=== PATIENT | female | born 1960 ===

== ENCOUNTER 2024-02-29 08:13 | Outpatient (CLI) | payer BC ==
--- NOTE | 2024-02-29 17:13 | Ultrasound Report ---
PROCEDURE: Pelvic w/Transvaginal INDICATIONS: POST MENOPAUSAL BLEEDING TECHNIQUE: Real-time scanning was performed of the pelvic organs, with image documentation. Additional endovagi nal scanning was necessary due to incomplete visualization of the adnexal and endometrial structures by transabdominal scanning. COMPARISON: None. FINDINGS: Uterus: Uterus is anteverted and normal in size at 8.3 x 7.1 x 5.9 cm. The myometrium is heterogene ous. The endometrium measures 17 mm in combined thickness. Small endometrial cyst cysts, a larger cy st measuring 0.7 cm. Several uterine fibroids. For example: -Mid anterior submucosal fibroid measuring 1.7 x 1.4 x 1.3 cm. -Right anterior subserosal fibroid measuring 1.1 x 1.1 x 0.7 cm. -Right anterior intramural fibroid measuring 1.1 x 0.8 x 0.6 cm. Ovaries: Ovaries are not identified. No obvious adnexal mass or cyst. Other: No pathologic free abdominal or pelvic fluid. IMPRESSION: 1. Endometrial thickening in this postmenopausal patient with bleeding. Endometrium measures 17 mm. R ecommend endometrial biopsy if not yet performed. 2. Several small uterine fibroids. 3. Ovaries are not seen. Reviewed by: Garry Chavez MD on 02/29/2024 5:12 PM PDT Approved by: Garry Chavez MD on 02/29/2024 5:12 PM PDT Station ID: [id number]
== END 2024-02-29 08:14 | disposition home or self-care (01) ==
LOC: DI 08:13
PROVIDERS: ATTEND Family Medicine
DX: N95.0 Postmenopausal bleeding (principal); R93.89 Abnormal findings on diagnostic imaging of other specified body structures; D25.2 Subserosal leiomyoma of uterus; D25.0 Submucous leiomyoma of uterus; D25.1 Intramural leiomyoma of uterus

== ENCOUNTER 2024-03-04 08:00 | Outpatient (CLI) | payer BC ==
[2024-03-04 11:52] LABS: HCT - HEMATOCRIT 42.3 % (37.0-47.0); HGB - HEMOGLOBIN 14.3 g/dL (12.0-16.0); MEAN CORPUSCULAR HEMOGLOBIN 29.7 pg (27.0-31.0); MEAN CORPUSCULAR HGB CONC 33.8 g/dL (32.0-36.0); MEAN CORPUSCULAR VOLUME 87.8 fL (81.0-99.0); MEAN PLATELET VOLUME 12.4 fL (7.9-10.8); RED BLOOD COUNT 4.82 10^6/uL (4.20-5.40); RED CELL DISTRIBUTION WIDTH 12.8 % (12.0-15.0); WHITE BLOOD COUNT 6.1 x10^3/uL (4.8-10.8)
[2024-03-04 12:14] LABS: ESTIMATED AVERAGE GLUCOSE 111 mg/dL (70-100); HEMOGLOBIN A1c% 5.5 % (4.27-6.07)
[2024-03-04 12:32] LABS: ALBUMIN 4.4 g/dL (3.2-5.5); ALBUMIN/GLOBULIN RATIO 1.4 (1.0-2.2); ALKALINE PHOSPHATASE 116 IU/L (42-121); ALT ALANINE AMINOTRANSFERASE 31 IU/L (10-60); AST ASPARTATE AMINOTRANSFERASE 26 IU/L (10-42); BILIRUBIN,TOTAL 1.2 mg/dL (0.2-1.0); BUN - BLOOD UREA NITROGEN 10 mg/dL (6-20); CALCIUM 10.7 mg/dL (8.5-10.3); CARBON DIOXIDE - CO2 30 mmol/L (21-32); CHLORIDE 103 mmol/L (101-111); CHOL/HDL RATIO 4.6 (<4.4); CHOLESTEROL 199 mg/dL; CREATININE 0.6 mg/dL (0.6-1.3); GFR - MDRD 101 (>89); GLUCOSE 115 mg/dL (74-104); HDL CHOLESTEROL 43 mg/dL; LDL CHOLESTEROL,CALCULATED 114 mg/dL; LDL/HDL RATIO 2.7 (<4.4); POTASSIUM 3.9 mmol/L (3.5-4.5); SODIUM 137 mmol/L (135-145); THYROID STIMULATING HORMONE 1.24 uIU/mL (0.34-5.60); TOTAL PROTEIN 7.6 g/dL (6.4-8.9); TRIGLYCERIDES 211 mg/dL; VLDL CHOLESTEROL 42 mg/dL
[2024-03-04 12:38] LABS: FERRITIN 81.6 ng/mL (11.0-306.8)
== END 2024-03-04 23:59 | disposition home or self-care (01) ==
LOC: LAB.N 08:00
PROVIDERS: ATTEND Family Medicine
DX: R42 Dizziness and giddiness (principal); N95.0 Postmenopausal bleeding; E66.9 Obesity, unspecified
CPT/HCPCS: 36415; 80053; 80061; 82728; 83036; 83721; 84443; 85027

== ENCOUNTER 2024-03-25 08:35 | Outpatient (CLI) | payer BC ==
[2024-03-25 13:35] LABS: ALBUMIN 4.4 g/dL (3.2-5.5); ALBUMIN/GLOBULIN RATIO 1.6 (1.0-2.2); CALCIUM 10.7 mg/dL (8.5-10.3); CREATININE 0.6 mg/dL (0.6-1.3); POTASSIUM 4.1 mmol/L (3.5-4.5); TOTAL PROTEIN 7.2 g/dL (6.4-8.9)
== END 2024-03-25 08:36 | disposition home or self-care (01) ==
LOC: LAB.N 08:35
PROVIDERS: ATTEND Family Medicine
DX: E83.52 Hypercalcemia (principal)
CPT/HCPCS: 36415; 80053; 82330; 83970

== ENCOUNTER 2024-04-17 16:33 | Outpatient (CLI) | payer BC | END 2024-04-17 16:34 | disposition home or self-care (01) | LOC: DI 16:33 | PROVIDERS: ATTEND Nurse Practitioner | DX: Z53.9 Procedure and treatment not carried out, unspecified reason (principal) ==